=== PATIENT | male | born 1945 | race Caucasian/White ===

== ENCOUNTER 2023-07-16 21:03 | Emergency (ER) | payer BC, OTHER ==
[~2023-07-16] VITALS: Ht 170.2 cm; Wt 59.6 kg
[2023-07-16 21:44] LABS: Urine Bacteria None Seen /hpf (None Seen)
[2023-07-16 22:06] LABS: Urine Blood Negative /uL (Negative); Urine Clarity Clear (Clear); Urine Color Colorless (Yellow); Urine Protein, UAD Negative (Negative); Urine Specific Gravity 1.005 (1.001-1.035); Urine Urobilinogen Normal (Negative); Urine WBC <1 /hpf (0 - 3)
[2023-07-16 22:28] LABS: Hematocrit 28.2 % (41.0-53.0); Mean Corpuscular Hemoglobin 30.2 pg (28.0-32.0); Mean Corpuscular Hgb Conc. 31.9 g/dL (32.0-36.0); Mean Corpuscular Volume 94.6 fL (80.0-100.0); Red Blood Cells 2.98 10^6/uL (4.5-5.90); White Blood Cell 4.4 10^3/uL (4.4-10.8)
[2023-07-16 22:34] LABS: Red Cell Distribution Width 22.1 % (11.8-14.3)
[2023-07-16 22:36] LABS: Basophils % (manual) 0 (0.0-2.0); Blast Cells 0; Myelocytes % 0; Promyelocytes % 0; Reactive Lymphocytes 0
[2023-07-16 22:51] LABS: Alkaline Phosphatase 815 U/L (46-116); Anion Gap 8 (5-15); Aspartate Aminotransferase 30 U/L (13-40); BUN/Creatinine Ratio 17.6 (10.0-20.0); Bilirubin, Total 0.3 mg/dL (0.2-1.0); Blood Urea Nitrogen 18 mg/dL (9-23); Calcium 8.1 mg/dL (8.5-10.1); Carbon Dioxide 24 mmol/L (20-30); Chloride 109 mmol/L (98-107); Glucose 105 mg/dL (74-106); Potassium 3.7 mmol/L (3.5-5.1); Sodium 141 mmol/L (136-145); Total Protein 5.8 g/dL (5.7-8.2)
[2023-07-16 22:53] LABS: Alanine Aminotransferase < 9 U/L (7-40)
[2023-07-16] MEDS: KETOROLAC TROMETH 60MG/2ML VIAL IM ONE (23:26)
[2023-07-16 23:34] LABS: Anisocytosis Slight; Band Neutrophils % (manual) 9; Eosinophils % (manual) 2 (0-7); Lymphocytes % (manual) 12 (10.0-50.0); Metamyelocytes % 2; Monocytes % (manual) 4 (0-12); Platelet Estimate Decreased
[2023-07-16] MEDS: IOHEXOL 350 MG/ML 100ML IJ ONE (23:35)
[2023-07-17] MEDS ORDERED: CYCL-839 PO (02:28)
[2023-07-17] MEDS ORDERED: FAMO20TA10 PO (02:28)
[2023-07-17] MEDS ORDERED: IBUP-1455 PO (02:28)
[2023-07-17 02:46] VITALS: BP 163/76; PULSE 92; RESP 19; TEMP 99.1; O2SAT 94
== END 2023-07-17 02:49 | disposition home or self-care (01) ==
LOC: ER 21:03 → EDBD 21:03 → ER 07-17 02:49
DX: M48.56XA Collapsed vertebra, not elsewhere classified, lumbar region, initial encounter for fracture (principal); M54.59 Other low back pain; I10 Essential (primary) hypertension; Z85.9 Personal history of malignant neoplasm, unspecified; Z79.899 Other long term (current) drug therapy
CPT/HCPCS: 36415; 71045; 71250; 71275; 72131; 74176; 80053; 81001; 83605; 83880; 84484; 85007; 85027; 85379; 87040; 93970; 96372; 99285; J1885; Q9967

== ENCOUNTER 2023-08-08 18:25 | Emergency (ER) | payer BC ==
[~2023-08-08] VITALS: Ht 170.2 cm; Wt 56.4 kg
[~2023-08-08 18:25] MED LIST: CYCL-839 PO; FAMO20TA10 PO; IBUP-1455 PO
[2023-08-08 19:51] VITALS: TEMP 98.9
[2023-08-08 19:55] VITALS: PULSE 80; RESP 20; O2SAT 100
[2023-08-08] MEDS: MORPHINE SULFATE 4 MG/ML SYR/VIAL IM ONE (20:01)
[2023-08-08] MEDS: ONDANSETRON HCL 4 MG/2 ML VIAL IM ONE ×2 (20:02→20:56)
[2023-08-08] MEDS: HYDROmorphone HCL 2 MG/ML VL/or syr IM ONE (20:57)
[2023-08-08 21:27] VITALS: BP 121/59; PULSE 100; RESP 18; O2SAT 95
== END 2023-08-08 21:27 | disposition home or self-care (01) ==
LOC: ER 18:25
DX: G89.3 Neoplasm related pain (acute) (chronic) (principal); M54.9 Dorsalgia, unspecified; M79.18 Myalgia, other site; I10 Essential (primary) hypertension
CPT/HCPCS: 96372; 99284; J1170; J2270; J2405

== ENCOUNTER 2023-08-26 12:38 | Inpatient (IN) | payer BC ==
[~2023-08-26] VITALS: Ht 170.2 cm; Wt 53.3 kg
[~2023-08-26 12:38] MED LIST changes: +LIDO5DIS21 TOP
[2023-08-26 14:17] LABS: Mean Corpuscular Hgb Conc. 32.9 g/dL (32.0-36.0)
[2023-08-26 14:19] LABS: Hematocrit 25.2 % (41.0-53.0); Hemoglobin 8.3 g/dL (13.5-17.5); Mean Corpuscular Hemoglobin 31.9 pg (28.0-32.0); Mean Corpuscular Volume 96.8 fL (80.0-100.0); Red Blood Cells 2.61 10^6/uL (4.5-5.90); Red Cell Distribution Width 19.8 % (11.8-14.3)
[2023-08-26 14:25] LABS: Chloride 106 mmol/L (98-107); Potassium 4.1 mmol/L (3.5-5.1); Sodium 138 mmol/L (136-145)
[2023-08-26 14:26] LABS: Anion Gap 4 (5-15); Calcium 8.5 mg/dL (8.5-10.1); Carbon Dioxide 28 mmol/L (20-30)
[2023-08-26 14:30] LABS: Basophils % (manual) 0 (0.0-2.0); Blast Cells 0; Eosinophils % (manual) 0 (0-7); Myelocytes % 0; Promyelocytes % 0; Reactive Lymphocytes 0
[2023-08-26 14:31] LABS: BUN/Creatinine Ratio 28.4 (10.0-20.0); Blood Urea Nitrogen 27 mg/dL (9-23); Glucose 118 mg/dL (74-106)
[2023-08-26 15:02] LABS: Band Neutrophils % (manual) 11; Lymphocytes % (manual) 11 (10.0-50.0); Metamyelocytes % 3; Monocytes % (manual) 5 (0-12); Platelet Estimate Adequate
[2023-08-26] MEDS ORDERED: MORPHINE SULFATE INJ 2 MG/ml SYRG IV PRN ×2 (17:15)
[2023-08-26] MEDS ORDERED: DOCUSATE SOD 100 MG CAP PO PRN (17:15)
[2023-08-26] MEDS ORDERED: NITROGLYCERIN 0.4 MG SL TAB SL PRN (17:15)
[2023-08-26] MEDS ORDERED: SODIUM CHLORIDE 0.9% 1,000 ML IV SCH (17:15)
[2023-08-26] MEDS ORDERED: ONDANSETRON HCL 4 MG/2 ML VIAL IV PRN (17:15)
[2023-08-26 17:16] VITALS: BP 142/66; PULSE 98; RESP 17; TEMP 98.3; O2SAT 94
[2023-08-26] MEDS: methylPREDNISolone SOD SUCC 125 MG/2 ML VL IV ONE (17:23)
[2023-08-26] MEDS: ALBUTEROL SULF 2.5 MG/0.5ML(0.5%) NEB SOLN NEB ONE (17:30)
[2023-08-26] MEDS: IPRATROPIUM BROM 0.5 MG/2.5ML INH SOL NEB ONE (17:30)
[2023-08-26] MEDS ORDERED: PANTOPRAZOLE 40 MG/10 ML VIAL INJ IV ONE (17:30)
[2023-08-26] MEDS: ALBUTEROL SULF 2.5 MG/0.5ML(0.5%) NEB SOLN ONE (17:47)
[2023-08-26] MEDS: BUDESONIDE (INHALATION) 0.5 MG/2 ML NEB ONE (17:47)
[2023-08-26] MEDS ORDERED: DEXTROSE (50%) 50ML SYRG IV PRN (18:00)
[2023-08-26] MEDS ORDERED: IPRATROPIUM BROM 0.5 MG/2.5ML INH SOL NEB SCH (18:00)
[2023-08-26 18:50] LABS: % Iron Saturation 23.9 % (20-55)
[2023-08-26 19:54] LABS: Ferritin 705.5 ng/mL (22-322); Folate (Folic Acid) 6.61 ng/mL (>5.38)
[2023-08-26] MEDS ORDERED: ACCU-CHEK COMFORT CURVE STRIP VI SCH (22:00)
[2023-08-26] MEDS ORDERED: ENOXAPARIN SOD 100 MG/1 ML SYRINGE SC SCH (22:00)
[2023-08-26] MEDS ORDERED: ALBUTEROL SULF 2.5 MG/0.5ML(0.5%) NEB SOLN NEB SCH (22:00)
[2023-08-26] MEDS ORDERED: methylPREDNISolone SOD SUCC 125 MG/2 ML VL IV SCH (22:00)
[2023-08-26] MEDS ORDERED: InsuLIN REG 1unit/0.01ml Soln (100units/ml) SC SCH (22:00)
[2023-08-27] MEDS ORDERED: PANTOPRAZOLE 40 MG/10 ML VIAL INJ IV SCH (10:00)
== END 2023-08-26 18:16 | disposition left against medical advice (07) | DRG 191 ==
LOC: ER 12:38 → TELE 17:14 → ER 18:16 → TELE 18:16
PROVIDERS: ADMIT Nurse Practitioner Family; ATTEND Nurse Practitioner Family
DX: J44.1 Chronic obstructive pulmonary disease with (acute) exacerbation (principal); C18.9 Malignant neoplasm of colon, unspecified; C41.9 Malignant neoplasm of bone and articular cartilage, unspecified; E78.5 Hyperlipidemia, unspecified; I10 Essential (primary) hypertension; G89.29 Other chronic pain; D63.8 Anemia in other chronic diseases classified elsewhere; E11.9 Type 2 diabetes mellitus without complications; F17.200 Nicotine dependence, unspecified, uncomplicated; C61 Malignant neoplasm of prostate; Z53.29 Procedure and treatment not carried out because of patient's decision for other reasons
CPT/HCPCS: 36415; 36600; 71046; 80048; 82607; 82728; 82746; 82805; 83540; 83550; 83615; 83880; 84484; 85007; 85027; 85045; 93005; 96374; G0378

== ENCOUNTER 2023-08-26 19:53 | Emergency (ER) | payer BC | END 2023-08-26 20:49 | disposition left against medical advice (07) | LOC: ER 19:53 | DX: M79.10 Myalgia, unspecified site (principal); Z53.21 Procedure and treatment not carried out due to patient leaving prior to being seen by health care provider ==